=== PATIENT | male | born 1960 | race Hispanic/Latino ===

== ENCOUNTER 2020-08-31 15:21 | Emergency (ER) | payer OTHER, BC ==
[2020-08-31] MEDS ORDERED: Lorazepam 2 MG/ML VIAL ONE (16:39)
[2020-08-31 16:44] LABS: #Lymphocytes 0.9 thou/uL (1.20-3.40); #Monocytes 0.3 thou/uL (0.11-0.59); #Neutrophils 3.8 thou/uL (1.40-6.50); %Basophils 0.6 % (0.0-1.0); %Eosinophils 0.9 % (0.0-10.0); %Lymphocytes 17.6 % (21.0-51.0); %Monocytes 6.4 % (0.0-10.0); %Neutrophils 74.4 % (42.0-75.0); Hemoglobin 7.2 g/dL (14.0-18.0); Mean Corpuscular HGB CONC 35.6 g/dL (32.0-36.0); Mean Corpuscular Hemoglobin 32.3 pg (27.0-31.0); Mean Corpuscular Volume 90.6 fL (78.0-98.0); Mean Platelet Volume 7.4 fL (7.4-10.4); Platelet Count 321 thou/uL (130-400); RBC Distribution Width 16.2 % (11.5-14.5); Red Blood Cell (RBC) Count 2.23 mill/uL (4.70-6.10); White Blood Cell (WBC) Count 5.1 thou/uL (4.8-10.8)
[2020-08-31 17:13] LABS: ALT (SGPT) 24 U/L (8-55); AST (SGOT) 14 U/L (5-34); Alkaline Phosphatase 138 U/L (40-110); Anion Gap 16 mmol/L (10-20); BUN (Urea Nitrogen) 34 mg/dL (8.4-25.7); Bilirubin, Total 0.3 mg/dL (0.2-1.2); Calc. Creatinine Clearance 0 mL/min (70-130); Calcium 9.3 mg/dL (7.8-10.44); Carbon Dioxide 19 mmol/L (23-31); Chloride 106 mmol/L (98-107); Glucose 177 mg/dL (80-115); Potassium 5.7 mmol/L (3.5-5.1); Sodium 135 mmol/L (136-145)
[2020-08-31 19:30] LABS: Anion Gap 26 mmol/L (10-20); BUN (Urea Nitrogen) 34 mg/dL (8.4-25.7); Calc. Creatinine Clearance 0 mL/min (70-130); Calcium 8.8 mg/dL (7.8-10.44); Chloride 108 mmol/L (98-107); Glucose 156 mg/dL (80-115); Potassium 5.1 mmol/L (3.5-5.1); Sodium 137 mmol/L (136-145)
[2020-08-31 19:51] LABS: Carbon Dioxide 8 mmol/L (23-31)
[2020-08-31 20:00] LABS: Actual Bicarbonate (HCO3v) 20 mEq/L (22-28); Analyzer IN Cardio ER; Base Excess -5.6 mEq/L (-2.0 to +3.0); Chloride (VBG) 107 mmol/L (98-106); Hemoglobin (Hb) 7.5 g/dL (13.1-17.2); Potassium (VBG) 5.09 mmol/L (3.70-5.30); Sodium 132.9 mmol/L (133-146); pH (venous) 7.31 (7.32-7.43)
[2020-08-31 22:05] LABS: Anion Gap 16 mmol/L (10-20); BUN (Urea Nitrogen) 33 mg/dL (8.4-25.7); Calc. Creatinine Clearance 0 mL/min (70-130); Calcium 9.4 mg/dL (7.8-10.44); Carbon Dioxide 20 mmol/L (23-31); Chloride 105 mmol/L (98-107); Glucose 145 mg/dL (80-115); Potassium 4.7 mmol/L (3.5-5.1); Sodium 136 mmol/L (136-145)
== END 2020-08-31 22:26 | disposition home or self-care (01) ==
LOC: ERS 15:21
DX: S70.01XA Contusion of right hip, initial encounter (principal); S80.11XA Contusion of right lower leg, initial encounter; I12.0 Hypertensive chronic kidney disease with stage 5 chronic kidney disease or end stage renal disease; E11.22 Type 2 diabetes mellitus with diabetic chronic kidney disease; N18.6 End stage renal disease; Z94.0 Kidney transplant status; V49.9XXA Car occupant (driver) (passenger) injured in unspecified traffic accident, initial encounter
CPT/HCPCS: 36415; 36416; 71045; 72170; 74176; 80053; 82805; 85025; 96374; J2060

== ENCOUNTER 2021-02-27 21:16 | Observation (INO) | payer BC, MEDICARE, SELFPAY ==
[2021-02-27] MEDS ORDERED: diphenhydrAMINE 50 MG/ML VIAL ONE (23:26)
[2021-02-27] MEDS ORDERED: Metoclopramide HCl 10 MG/2 ML VIAL ONE (23:26)
[2021-02-28] MEDS ORDERED: Lorazepam 2 MG/ML VIAL ONE (02:19)
[2021-02-28] MEDS ORDERED: Metoclopramide HCl 10 MG/2 ML VIAL ONE (02:20)
[2021-02-28] MEDS ORDERED: Magnesium 2 GM/50 ML BAG (IN WATER) ONE (03:13)
[2021-02-28] MEDS ORDERED: cloNIDine 0.1 MG TAB ONE (05:01)
[2021-02-28] MEDS ORDERED: Ondansetron PF 4 MG/2 ML Vial IVP PRN (05:32)
[2021-02-28] MEDS ORDERED: Acetaminophen 325 MG TAB PO PRN (05:32)
[2021-02-28] MEDS ORDERED: Ondansetron ODT 4 MG TAB PO PRN (05:32)
[2021-02-28] MEDS ORDERED: Acetaminophen 650 MG Suppository PR PRN (05:32)
[2021-02-28] MEDS ORDERED: Morphine 4 MG/ML VIAL SLOW IVP PRN ×2 (05:34→15:55)
[2021-02-28 06:26] VITALS: BMI 30.8
[2021-02-28] MEDS ORDERED: Dextrose 50% Abboject 50 ML SYRINGE SLOW IVP PRN ×2 (07:11→16:43)
[2021-02-28] MEDS ORDERED: Dextrose 5% in Water 1,000 ML IV PRN ×2 (07:11→16:43)
[2021-02-28] MEDS ORDERED: HumaLOG 300 UNITS/3 ML VIAL SC PRN ×2 (07:11→16:44)
[2021-02-28 07:18] LABS: #Eosinphils 0.1 thou/uL (0.0-0.7); #Lymphocytes 1.2 thou/uL (1.20-3.40); #Neutrophils 8.1 thou/uL (1.40-6.50); %Basophils 0.1 % (0.0-1.0); %Eosinophils 0.6 % (0.0-10.0); %Lymphocytes 11.6 % (21.0-51.0); %Monocytes 9.8 % (0.0-10.0); %Neutrophils 77.9 % (42.0-75.0); Hemoglobin 14.4 g/dL (14.0-18.0); Mean Corpuscular HGB CONC 32.2 g/dL (32.0-36.0); Mean Corpuscular Hemoglobin 30.9 pg (27.0-31.0); Mean Platelet Volume 7.6 fL (7.4-10.4); Platelet Count 208 thou/uL (130-400); RBC Distribution Width 13.9 % (11.5-14.5); Red Blood Cell (RBC) Count 4.66 mill/uL (4.70-6.10); White Blood Cell (WBC) Count 10.4 thou/uL (4.8-10.8)
[2021-02-28 07:35] LABS: Anion Gap 11 mmol/L (10-20); BUN (Urea Nitrogen) 36 mg/dL (8.4-25.7); Calc. Creatinine Clearance 57 mL/min (70-130); Calcium 9.4 mg/dL (7.8-10.44); Carbon Dioxide 24 mmol/L (23-31); Chloride 101 mmol/L (98-107); Glucose 209 mg/dL (80-115); Potassium 4.3 mmol/L (3.5-5.1); Sodium 132 mmol/L (136-145)
[2021-02-28] MEDS ORDERED: Carvedilol 25 MG TAB PO SCH ×2 (08:30→17:00)
[2021-02-28] MEDS: HumaLOG 300 UNITS/3 ML VIAL SC PRN ×2 (11:58→16:32)
[2021-02-28] MEDS ORDERED: Clindamycin 150 MG CAP PO SCH (14:00)
[2021-02-28] MEDS ORDERED: HYDROcodone/Acetaminophen 5/325 mg Tablet PO PRN (15:54)
[2021-02-28 17:15] LABS: SARS-CoV-2 PCR by NAA Not Detected (NotDetected)
[2021-02-28 18:36] VITALS: BP 106/65; TEMP 99.4
[2021-02-28] MEDS ORDERED: Mycophenolate ER 180 MG TAB PO SCH ×2 (21:00)
[2021-02-28] MEDS ORDERED: Tacrolimus 0.5 MG CAP PO SCH (21:00)
[2021-03-01] MEDS ORDERED: Atorvastatin Calcium 10 MG TAB PO SCH (09:00)
[2021-03-01] MEDS ORDERED: predniSONE 5 MG TAB PO SCH (09:00)
== END 2021-02-28 19:03 | disposition home or self-care (01) ==
LOC: ERS 21:16 → T4-A 02-28 05:16
PROVIDERS: ADMIT Student in an Organized Health Care Education/Training Program; ATTEND Family Medicine
PROC: 0W933ZZ Drainage of Oral Cavity and Throat, Percutaneous Approach (ICD-10-PCS; principal; 2021-02-28)
DX: L02.01 Cutaneous abscess of face (principal); B96.89 Other specified bacterial agents as the cause of diseases classified elsewhere; I12.0 Hypertensive chronic kidney disease with stage 5 chronic kidney disease or end stage renal disease; E11.22 Type 2 diabetes mellitus with diabetic chronic kidney disease; N18.6 End stage renal disease; D63.1 Anemia in chronic kidney disease; Z79.82 Long term (current) use of aspirin; Z79.899 Other long term (current) drug therapy; Z94.0 Kidney transplant status; Z20.822 Contact with and (suspected) exposure to COVID-19
CPT/HCPCS: 36415; 36416; 70450; 70551; 85025; 87070; 87205; 96365; 96366; 96367; 96375; G0378; J1200; J1815; J2060; J2270; J2765; J3475; U0003; U0005

== ENCOUNTER 2024-12-05 08:46 | Emergency (ER) | payer OTHER ==
[2024-12-05] MEDS ORDERED: Sodium Bicarb 50 MEQ/50 ML Abboject 8.4% SYRINGE ONE (08:48)
[2024-12-05] MEDS ORDERED: Calcium Chloride 1 GM/10 ML Abboject SYRINGE ONE (08:48)
[2024-12-05] MEDS ORDERED: EPINEPHrine 1 MG/10 ML Abboject SYRINGE ONE (08:48)
== END 2024-12-05 09:05 | disposition expired ==
LOC: ERS 08:46
DX: I46.9 Cardiac arrest, cause unspecified (principal); N18.6 End stage renal disease
CPT/HCPCS: 82962; J0165; J0282; 36416; 92950